=== PATIENT | male | born 1995 | race Caucasian/White ===

== ENCOUNTER 2018-01-25 14:12 | Emergency (ER) | payer SELFPAY ==
--- NOTE | 2018-01-25 14:26 | EDPHY ---
H & P Stated Complaint: DARK STOOLS Time Seen by Provider: 01/25/18 14:26 - Personal History Current Tetanus/Diphtheria Vaccine: Yes Current Tetanus Diphtheria and Acellular Pertussis (TDAP): Yes - Medical/Surgical History Hx Asthma: No Hx Chronic Respiratory Disease: No Hx Diabetes: No Hx Cardiac Disease: No Hx Renal Disease: No Hx Cirrhosis: No Hx Alcoholism: Yes Hx HIV/AIDS: No Hx Splenectomy or Spleen Trauma: No Other PMH: ANDER, - Social History Smoking Status: Former smoker Constitutional: Initial Vital Signs Temperature (C) 36.7 C 01/25/18 14:20 Heart Rate 121 H 01/25/18 14:20 Respiratory Rate 16 01/25/18 14:20 Blood Pressure 150/90 H 01/25/18 14:20 O2 Sat (%) 98 01/25/18 14:20 O2 Delivery Mode Room Air Allergies/Adverse Reactions: No Known Allergies Allergy (Unverified 01/25/18 14:19) Home Medications: Medication Instructions Recorded NK [No Known Home Meds] 01/25/18 Medical Decision Making ED Course/Re-evaluation: CHIEF COMPLAINT: Dark stool HISTORY OF PRESENT ILLNESS: This patient is a 22 year old male complaining of several days of dark stools. He additionally complains of persistent penile discomfort following an injury at work one month ago. He was lifting something heavy and feels like he "pulled a muscle in his penis". He has had more frequent urination since this time and feels his erections have been weaker than normal. Over the past several days, he has noted differences in his stool: initially, his stools were "ribbon-like" and dark in color, and for the past couple days, his stool has been "pitch black ". He denies any bright red blood in his stools. No abdominal pain. He denies taking frequent aspirin or ibuprofen and treats his pain with marijuana. He has history of blood in his stool several years ago secondary to heavy cough syrup use. He denies current heavy alcohol use. No fever, chest pain, shortness of breath, vomiting, weakness, fainting, incontinence, or other associated symptoms. REVIEW OF SYSTEMS: A comprehensive 10 system review of systems is otherwise negative aside from elements mentioned in the history of present illness and medical decision making. PHYSICAL EXAM: HR, BP, O2 Sat, RR. Temp noted General Appearance: Alert, well hydrated, appropriate, and non-toxic appearing. Head: Atraumatic without scalp tenderness or obvious injury Eyes: Pupils equal, round, reactive to light and accommodation, EOMI, no trauma , no injection. Ears: Clear bilaterally, no perforation, normal landmarks Nose: Atraumatic, no rhinorrhea, clear. Throat: There is no erythema or exudates, no lesions, normal tonsils, mucus membranes moist. Neck: Supple, 2+ carotid upstroke, nontender, no lymphadenopathy. Respiratory: No retractions, no distress, no wheezes, and no accessory muscle use. Lungs are clear to auscultation bilaterally. Cardiovascular: Regular rate and rhythm, no murmurs, rubs, or gallops. Bilateral carotid, radial, dorsalis pedis, and posterior tibial pulses intact. Good capillary refill all extremities. Gastrointestinal: Abdomen is soft, nontender, non-distended, no masses, no rebound, no guarding, no peritoneal signs. Genitourinary: Penis and scrotum are normal in appearance, nontender. Rectal: Dark stool present. Musculoskeletal: Normal active ROM of all extremities, atraumatic. Neurological: Alert, appropriate, and interactive. The patient has normal DTRs and non-focal cranial nerves, motor, sensory, and cerebellar exam. Skin: No rashes, good turgor, no nodules on palpation. Past medical history: Endorses bloody stools in the past secondary to heavy cough syrup use. Past surgical history: Noncontributory. Family history: Noncontributory. Social history: Single. Lives in [place]. Does not abuse tobacco, drugs, or alcohol. DIFFERENTIAL DIAGNOSIS: The differential diagnosis for the patient's possible upper GI bleed included but was not limited to ulcer disease, gastritis, Uzma-Reyes tear, and esophageal varices. MEDICAL DECISION [id number] y/o male presents with penile discomfort, reported block stools. Genitourinary exam is unremarkable. Plan for occult blood test to the patient's stool. The patient is well-appearing and hemodynamically stable. Stool is negative for occult blood. Reassessed patient. He continues to appear well. Discussed laboratory results. Plan to discharge patient home in good condition. Referral to urology given for his penile complaints. Follow up and return precautions discussed. The patient is comfortable with this plan. - Data Points Laboratory Results: 01/25/18 14:35 Stool Occult Bld Scrn NEGATIVE (NEGATIVE) Departure - Departure Disposition: Home, Routine, Self-Care Clinical Impression: Dark stools, Penile pain Condition: Good Instructions: Additional Information Additional Instructions: 1. Follow up with urology for further evaluation. 2. Return to the emergency department for fever, chest pain, shortness of breath , fainting, incontinence, or other worsening of condition. Referrals: Rei Puri MD [Medical Doctor] - As per Instructions Report Scribed for: Brian Desai Report Scribed by: Danyell Buckley Date of Report: 01/25/18 Time of Report: 15:38
[2018-01-25 15:36] VITALS: BP 116/72
== END 2018-01-25 15:35 | disposition home or self-care (01) ==
DX: R19.5 Other fecal abnormalities (principal); N48.89 Other specified disorders of penis; Z87.891 Personal history of nicotine dependence